=== PATIENT | female | born 1990 | race Caucasian/White ===

== ENCOUNTER 2017-03-10 13:58 | Emergency (ER) | payer OTHER ==
[~2017-03-10 13:58] MED LIST: BUPR150XL PO; IBUP-232 PO
[2017-03-10 14:02] VITALS: BP 139/93; PULSE 103; RESP 20; TEMP 98.6; O2SAT 98
--- NOTE | 2017-03-10 14:27 | PD ---
HPI Chief Complaint: GI Complaint Time Seen by Provider: 14:24 Travel History International Travel<30 days: No Contact w/Intl Traveler<30days: No Traveled to known affect area: No History of Present Illness HPI 26-year-old female with history of no significant past medical issues, presents to the ER today for 5 out of 10 epigastric abdominal pains with nausea and an episode of dark-looking diarrhea. She denies any fevers or any other symptoms. She does not know of any exacerbating or alleviating factors. She states that she started feeling eating today. Modifying Factors: None Associated Signs & Symptoms: Nausea, diarrhea, abdominal pain Risk Factors: None PFSH Past Medical History Asthma: Yes Diminished Hearing: No Migraines: Yes Past Surgical History Oral Surgery: Yes (ORAL SURGERY) Other Surgery: Yes (TUBES IN EARS) Social History Alcohol Use: Yes (OCCASSIONALLY ) Tobacco Use: No (1/2 PACK A DAY FOR 2 YEARS, PT STATES SHE QUIT YESTERDAY) Substance Use: No Allergies-Medications (Allergen,Severity, Reaction): Coded Allergies: Ceclor (Verified Allergy, Mild, UNKNOWN, 09/01/16) Uncoded Allergies: TRIPTAN (Allergy, Severe, ., 09/01/16) Reported Meds & Prescriptions Reported Meds & Active Scripts Active Ibuprofen 600 Mg Tab 600 Mg PO Q6H PRN 5 Days Reported Wellbutrin Xl 24 HR (Bupropion HCl) 150 Mg Tab 150 Mg PO DAILY Review of Systems Except as stated in HPI: all other systems reviewed are Neg Physical Exam Narrative GENERAL: Well-developed young white female patient currently mild distress. Awake and oriented 3. SKIN: Focused skin assessment warm/dry. HEAD: Atraumatic. Normocephalic. EYES: Pupils equal and round. No scleral icterus. No injection or drainage. ENT: No nasal bleeding or discharge. Mucous membranes pink and moist. NECK: Trachea midline. No JVD. CARDIOVASCULAR: Regular rate and rhythm. No murmur appreciated. RESPIRATORY: No accessory muscle use. Clear to auscultation. Breath sounds equal bilaterally. GASTROINTESTINAL: Abdomen soft, mild upper abdominal tenderness without guarding or rebound, nondistended. Hepatic and splenic margins not palpable. RECTAL EXAM: No masses or tenderness, stool is dark brown. Hemoccult negative. MUSCULOSKELETAL: No obvious deformities. No clubbing. No cyanosis. No edema. NEUROLOGICAL: Awake and alert. No obvious cranial nerve deficits. Motor grossly within normal limits. Normal speech. PSYCHIATRIC: Appropriate mood and affect; insight and judgment normal. Data Data Last Documented VS Vital Signs Date Time Temp Pulse Resp B/P Pulse Ox O2 Delivery O2 Flow Rate FiO2 03/10/17 14:42 18 98 Room Air 03/10/17 14:02 98.6 103 139/93 Orders Complete Blood Count With Diff (03/10/17 14:24) Comprehensive Metabolic Panel (03/10/17 14:24) Lipase (03/10/17 14:24) Urinalysis - C+S If Indicated (03/10/17 14:24) Iv Access Insert/Monitor (03/10/17 14:24) Ecg Monitoring (03/10/17 14:24) Oximetry (03/10/17 14:24) Sodium Chloride 0.9% Flush (Ns Flush) (03/10/17 14:30) Ed Urine Pregnancytest Poc (03/10/17 14:24) Sodium Chlor 0.9% 1000 Ml Inj (Ns 1000 M (03/10/17 14:30) Ondansetron Inj (Zofran Inj) (03/10/17 14:30) Labs Laboratory Tests Test 03/10/17 03/10/17 14:34 14:40 White Blood Count 10.8 TH/MM3 Red Blood Count 4.58 MIL/MM3 Hemoglobin 13.8 GM/DL Hematocrit 41.1 % Mean Corpuscular Volume 89.8 FL Mean Corpuscular Hemoglobin 30.2 PG Mean Corpuscular Hemoglobin 33.6 % Concent Red Cell Distribution Width 12.3 % Platelet Count 326 TH/MM3 Mean Platelet Volume 8.6 FL Neutrophils (%) (Auto) 78.9 % Lymphocytes (%) (Auto) 10.1 % Monocytes (%) (Auto) 6.5 % Eosinophils (%) (Auto) 0.8 % Basophils (%) (Auto) 3.7 % Neutrophils # (Auto) 8.5 TH/MM3 Lymphocytes # (Auto) 1.1 TH/MM3 Monocytes # (Auto) 0.7 TH/MM3 Eosinophils # (Auto) 0.1 TH/MM3 Basophils # (Auto) 0.4 TH/MM3 CBC Comment DIFF FINAL Differential Comment Sodium Level 139 MEQ/L Potassium Level 3.8 MEQ/L Chloride Level 103 MEQ/L Carbon Dioxide Level 27.4 MEQ/L Anion Gap 9 MEQ/L Blood Urea Nitrogen 11 MG/DL Creatinine 0.86 MG/DL Estimat Glomerular Filtration 79 ML/MIN Rate Random Glucose 96 MG/DL Calcium Level 9.5 MG/DL Total Bilirubin 0.5 MG/DL Aspartate Amino Transf 16 U/L (AST/SGOT) Alanine Aminotransferase 35 U/L (ALT/SGPT) Alkaline Phosphatase 109 U/L Total Protein 7.7 GM/DL Albumin 3.9 GM/DL Lipase 131 U/L Urine Collection Type CLEAN CATCH Urine Color STRAW Urine Turbidity CLEAR Urine pH 5.5 Urine Specific [place] 1.005 Urine Protein NEG mg/dL Urine Glucose (UA) NEG mg/dL Urine Ketones NEG mg/dL Urine Occult Blood NEG Urine Nitrite NEG Urine Bilirubin NEG Urine Leukocyte Esterase TRACE Urine WBC 0-2 /hpf Urine Squamous Epithelial 0-5 /hpf Cells Microscopic Urinalysis Comment CULT NOT INDICATED Urine Collection Time 14:[address] [facility] Medical Decision Making Medical Screen Exam Complete: Yes Emergency Medical Condition: Yes Medical Record Reviewed: Yes Interpretation(s) Laboratory Tests Test 03/10/17 03/10/17 14:34 14:40 Neutrophils (%) (Auto) 78.9 % (16.0-70.0) Basophils (%) (Auto) 3.7 % (0.0-2.0) Neutrophils # (Auto) 8.5 TH/MM3 (1.8-7.7) Basophils # (Auto) 0.4 TH/MM3 (0-0.2) Estimat Glomerular Filtration 79 ML/MIN (>89) Rate Urine Leukocyte Esterase TRACE (NEG) Differential Diagnosis Nausea, upper abdominal pains, dark stools and diarrheaGI bleed versus gastroenteritis versus metabolic issues versus dehydration Narrative Course Hemoccult is negative. Abdomen is fairly benign and I do not suspect an acute intra-abdominal process. Lab work did not indicate any decrease in H&H. Metabolic panel is unremarkable. I have discussed risk and benefits of doing a CAT scan at this point with the patient. Considering fairly benign abdomen and no signs of other issues identified on lab work, patient states she is comfortable without doing further CAT scan studies. At this point, she appears to have some underlying gastroenteritis. And my plan would be to release her with symptomatically relief for nausea vomiting and pain. Follow-up with primary care physician. Return for any worsening symptoms as needed. The plan has been discussed with her and she states understanding. HemaPrompt Point of Care Internal Pos. & Neg. Controls: Passed Fecal Specimen Occult Blood: Negative Diagnosis Primary Impression: Gastroenteritis Additional Impression: Abdominal pain Med/Other Pt SpecificInfo: Prescription(s) given Scripts Loperamide (Imodium A-D)2 Mg Cap2 Mg PO DIRECTED PRN (DIARRHEA) #15 CAP Ref 0 One capsule after each loose stool. Not to exceed 8 tablets per day. Prov:Renae Barrett MD 03/10/17 Ondansetron Odt (Zofran Odt)4 Mg Tab4 Mg SL Q6HR PRN (Nausea/Vomiting) #7 TAB Ref 0 Prov:Renae Barrett MD 03/10/17 Disposition: 01 DISCHARGE HOME Condition: Stable Renae Barrett MD March 10, 2017 14:27
[2017-03-10] MEDS ORDERED: SODIUM CHLOR 0.9% 1000 ML INJ 1,000 ML IV ONE (14:30)
[2017-03-10] MEDS ORDERED: ONDANSETRON HCL 4 MG/2 ML VIAL IV PUSH ONE (14:30)
[2017-03-10] MEDS ORDERED: SODIUM CHLORIDE 0.9% FLUSH 10 ML FLUSH IV FLUSH PRN (14:30)
[2017-03-10 14:42] VITALS: RESP 18; O2SAT 98
[2017-03-10 14:48] LABS: AUTOMATED NEUTROPHIL # 8.5 TH/MM3 (1.8-7.7); BASOPHIL # 0.4 TH/MM3 (0-0.2); BASOPHIL % 3.7 % (0.0-2.0); EOSINOPHIL # 0.1 TH/MM3 (0-0.4); EOSINOPHIL % 0.8 % (0.0-4.0); HEMATOCRIT 41.1 % (35.0-46.0); LYMPH % 10.1 % (9.0-44.0); LYMPHOCYTE # 1.1 TH/MM3 (1.0-4.8); MEAN CELL VOLUME 89.8 FL (80.0-100.0); MEAN CORPUSCULAR HEMOGLOBIN 30.2 PG (27.0-34.0); MEAN CORPUSCULAR HGB CONC 33.6 % (32.0-36.0); MONO % 6.5 % (0.0-8.0); NEUT % 78.9 % (16.0-70.0); PLATELET COUNT 326 TH/MM3 (150-450); RED BLOOD COUNT 4.58 MIL/MM3 (4.00-5.30); RED CELL DISTRIBUTION WIDTH 12.3 % (11.6-17.2); WHITE BLOOD COUNT 10.8 TH/MM3 (4.0-11.0)
[2017-03-10 14:57] LABS: BLOOD, URINE NEG (NEG); GLUCOSE,URINE NEG (NEG); KETONE, URINE NEG (NEG); NITRITE,URINE NEG (NEG); PH, URINE 5.5 (5.0-8.5)
[2017-03-10 14:58] LABS: METHOD OF COLLECTION CLEAN CATCH; URINE COLOR STRAW (YELLW/STRAW)
[2017-03-10 15:01] LABS: CHLORIDE 103 MEQ/L (98-107); POTASSIUM 3.8 MEQ/L (3.5-5.1); SODIUM (NA) 139 MEQ/L (136-145)
[2017-03-10 15:01] LABS: COMMENT (UR) CULT NOT INDICATED; CULTURE IF INDICATED CULT NOT INDICATED; SQUAMOUS EPITHELIAL CELL URINE 0-5 /hpf (0-5); WBC, URINE 0-2 /hpf (0-5)
[2017-03-10 15:05] LABS: ANION GAP 9 MEQ/L (5-15); BICARBONATE 27.4 MEQ/L (21.0-32.0); BLOOD UREA NITROGEN 11 MG/DL (7-18)
[2017-03-10 15:08] LABS: ALT (GPT) 35 U/L (10-53); AST (GOT) 16 U/L (15-37); GLOMERULAR FILTRATION RATE 79 ML/MIN (>89); HEMO FLAGS DIFF FINAL
[2017-03-10 15:10] LABS: TOTAL BILIRUBIN ADULT 0.5 MG/DL (0.2-1.0)
[2017-03-10 15:11] LABS: ALKALINE PHOSPHATASE 109 U/L (45-117)
[2017-03-10] MEDS ORDERED: LOPE7.5C PO (15:18)
[2017-03-10] MEDS ORDERED: ZOFR4TAB3 SL (15:18)
[2017-03-11] MEDS ORDERED: BENT20TA PO (21:28)
== END 2017-03-10 15:28 | disposition home or self-care (01) ==
LOC: PHED 13:58
DX: K52.9 Noninfective gastroenteritis and colitis, unspecified (principal); J45.909 Unspecified asthma, uncomplicated; F17.200 Nicotine dependence, unspecified, uncomplicated
CPT/HCPCS: 80053; 81001; 83690; 84703; 85025; 96361; 96374; 99284; J2405; J7030

== ENCOUNTER 2017-03-11 20:21 | Emergency (ER) | payer OTHER ==
[~2017-03-11] VITALS: Ht 160 cm; Wt 86.0 kg
[~2017-03-11 20:21] MED LIST changes: +LOPE7.5C PO; +ZOFR4TAB3 SL
[2017-03-11 20:23] VITALS: BP 134/79; PULSE 90; RESP 15; TEMP 98.8; O2SAT 99
--- NOTE | 2017-03-11 21:25 | PD ---
HPI . Upper abdominal pain Chief Complaint: GI Complaint Time Seen by Provider: 21:16 Travel History International Travel<30 days: No Contact w/Intl Traveler<30days: No Traveled to known affect area: No History of Present Illness HPI Patient presents with a 24+ hour history of abdominal pain. She describes bloating. She rates it as 5/10. She states that it is getting progressively worse. He reports some associated nausea and 2 black stools. She denies fever. She denies any urinary tract symptoms. She has had no vomiting. Patient was seen at [facility] yesterday for same. She with a CBC, comprehensive metabolic panel, UA for Hemoccult. All were negative. She was safely discharged home. [facility] Past Medical History Asthma: Yes Depression: Yes Diminished Hearing: No Respiratory: Yes (ASTHMA) Immunizations Current: Yes Migraines: Yes Tetanus Vaccination: Unknown Influenza Vaccination: No ?: Not LMP: 03/04/17 Past Surgical History Oral Surgery: Yes (ORAL SURGERY) Tympanostomy Tube: Yes Other Surgery: Yes (TUBES IN EARS) Social History Alcohol Use: Yes (OCCASSIONALLY ) Tobacco Use: No (1/2 PACK A DAY FOR 2 YEARS, PT STATES SHE QUIT YESTERDAY) Substance Use: No Allergies-Medications (Allergen,Severity, Reaction): Coded Allergies: Ceclor (Verified Allergy, Mild, UNKNOWN, 03/11/17) Uncoded Allergies: TRIPTAN (Allergy, Severe, ., 09/01/16) Reported Meds & Prescriptions Reported Meds & Active Scripts Active Imodium A-D (Loperamide HCl) 2 Mg Cap 2 Mg PO DIRECTED PRN One capsule after each loose stool. Not to exceed 8 tablets per day. Zofran Odt (Ondansetron Odt) 4 Mg Tab 4 Mg SL Q6HR PRN Ibuprofen 600 Mg Tab 600 Mg PO Q6H PRN 5 Days Reported Wellbutrin Xl 24 HR (Bupropion HCl) 150 Mg Tab 150 Mg PO DAILY Review of Systems Except as stated in HPI: all other systems reviewed are Neg General / Constitutional: No: Fever, Chills Gastrointestinal: Positive: Nausea, Abdominal Pain, No: Vomiting, Diarrhea, Constipation Genitourinary: No: Urgency, Frequency, Dysuria Physical Exam Narrative GENERAL: Healthy-appearing young woman who is in no acute distress. SKIN: Warm and dry. HEAD: Atraumatic. Normocephalic. EYES: Pupils equal and round. Extraocular movements are intact. ENT: No nasal bleeding or discharge. Mucous membranes pink and moist. NECK: Trachea midline. Neck is supple. CARDIOVASCULAR: Regular rate and rhythm. Heart sounds are normal. RESPIRATORY: No accessory muscle use. Lungs are clear with full air movement throughout. GASTROINTESTINAL: Abdomen soft, non-tender, nondistended. MUSCULOSKELETAL: No obvious deformities. No edema. NEUROLOGICAL: Awake and alert. No obvious cranial nerve deficits. Motor grossly within normal limits. Normal speech. PSYCHIATRIC: Appropriate mood and affect; insight and judgment normal. Data Data Last Documented VS Vital Signs Date Time Temp Pulse Resp B/P Pulse Ox O2 Delivery O2 Flow Rate FiO2 03/11/17 20:23 98.8 90 15 134/79 99 Room Air MDM Medical Decision Making Medical Screen Exam Complete: Yes Emergency Medical Condition: Yes Medical Record Reviewed: Yes (records were reviewed. Patient had a negative workup yesterday for same.) Differential Diagnosis Differential diagnosis of abdominal pain includes but is not limited to gastritis, pancreatitis, hepatitis, gastroenteritis, gallbladder disease, constipation, urinary retention, UTI, peptic ulcer disease, diverticulitis or appendicitis Narrative Course Patient presents with abdominal pain. She had a negative workup yesterday for same. She has a benign exam. HemaPrompt Point of Care Internal Pos. & Neg. Controls: Passed Fecal Specimen Occult Blood: Negative Diagnosis Primary Impression: Abdominal pain Qualified Code: R10.84 - Generalized abdominal pain Patient Instructions: Abdominal Pain (ED), General Instructions Med/Other Pt SpecificInfo: Prescription(s) given Scripts Dicyclomine (Bentyl)20 Mg Tab20 Mg PO QID #10 TAB Ref 0 Prov:Teagan Ralph MD 03/11/17 Disposition: 01 DISCHARGE HOME Condition: Stable Teagan Ralph MD March 11, 2017 21:25
[2017-03-11] MEDS ORDERED: BENT20TA PO (21:28)
== END 2017-03-11 21:41 | disposition home or self-care (01) ==
LOC: NEPD 20:21
DX: R10.84 Generalized abdominal pain (principal); R14.0 Abdominal distension (gaseous); R11.0 Nausea; R19.5 Other fecal abnormalities; Z87.09 Personal history of other diseases of the respiratory system; Z86.59 Personal history of other mental and behavioral disorders; Z86.69 Personal history of other diseases of the nervous system and sense organs; Z87.891 Personal history of nicotine dependence
CPT/HCPCS: 99283

== ENCOUNTER 2017-10-01 21:04 | Emergency (ER) | payer SELFPAY ==
[~2017-10-01] VITALS: Ht 160 cm; Wt 92.4 kg
[~2017-10-01 21:04] MED LIST changes: +BENT20TA PO
[2017-10-01 21:14] VITALS: BP 129/76; PULSE 88; RESP 18; TEMP 99; O2SAT 97
[2017-10-01] MEDS ORDERED: MORPHINE SULFATE 4 MG/ML INJ IM ONE (21:45)
--- NOTE | 2017-10-01 22:08 | RADRPT ---
EXAM DATE/TIME: 10/01/2017 21:47 [facility] COMPARISON: No previous studies available for comparison. INDICATIONS : Patient tripped on a root and landed on patella. MEDICAL HISTORY : Asthma SURGICAL HISTORY : Tubal ligation. ENCOUNTER: Initial ACUITY: 1 day PAIN SCORE: 8/10 LOCATION: Right Patella FINDINGS: Four view examination of the right knee demonstrates no evidence of fracture or dislocation. Bony mi neralization is normal. The articular surfaces are intact. The suprapatellar soft tissues have a no rmal configuration. CONCLUSION: No acute disease. Santos Luis MD on October 01, 2017 at 22:06 Board Certified Radiologist. This report was verified electronically.
[2017-10-01] MEDS ORDERED: TRAM50 PO (22:19)
[2017-10-01] MEDS ORDERED: IBUP1TAB7 PO (22:19)
--- NOTE | 2017-10-01 22:19 | PD ---
HPI . Knee injury Chief Complaint: Injury Time Seen by Provider: 21:43 Travel History International Travel<30 days: No Contact w/Intl Traveler<30days: No Traveled to known affect area: No History of Present Illness HPI Patient presents with chief complaint of a knee injury. She states that she had a trip and fall landing on a flexed right knee just prior to presentation. She states that the knee feels swollen. She rates her pain 9/10. She has treated it prior to presentation with ice. PFSH Past Medical History Asthma: Yes Depression: Yes Diminished Hearing: No Respiratory: Yes (ASTHMA) Immunizations Current: Yes Migraines: Yes Tetanus Vaccination: > 5 Years Influenza Vaccination: No ?: Not LMP: 3 WEEKS AGO Past Surgical History Oral Surgery: Yes (ORAL SURGERY) Tympanostomy Tube: Yes Other Surgery: Yes (TUBES IN EARS) Social History Alcohol Use: Yes (OCCASSIONALLY ) Tobacco Use: No (1/2 PACK A DAY FOR 2 YEARS, PT STATES SHE QUIT YESTERDAY) Substance Use: No Allergies-Medications (Allergen,Severity, Reaction): Coded Allergies: cefaclor (Unverified Allergy, Mild, UNKNOWN, 10/01/17) Uncoded Allergies: TRIPTAN (Allergy, Severe, ., 09/01/16) Reported Meds & Prescriptions Reported Meds & Active Scripts Active Review of Systems Except as stated in HPI: all other systems reviewed are Neg Musculoskeletal: Positive: Arthralgias, Edema Physical Exam Narrative GENERAL: Awake and alert and in no acute distress. SKIN: Warm and dry. She has a superficial abrasion on the right knee. HEAD: Normocephalic/atraumatic. EYES: Pupils are equal. Extraocular movements are intact. NECK: Normal range of motion. CARDIOVASCULAR: Regular rate and rhythm. RESPIRATORY: Nonlabored respirations. MUSCULOSKELETAL: Atraumatic. Tender right knee. She is able to extend the knee. No gross deformity. Distally neurovascularly intact. NEUROLOGICAL: Nonfocal. PSYCHIATRIC: Appropriate mood and affect. Data Data Last Documented VS Vital Signs Date Time Temp Pulse Resp B/P (MAP) Pulse Ox O2 Delivery O2 Flow Rate FiO2 10/01/17 21:44 Room Air 10/01/17 21:14 99.0 88 18 129/76 (93) 97 Orders Orders Knee, Complete (4vws) (10/01/17 21:14) Ed Urine Pregnancytest Poc (10/01/17 21:43) Morphine Inj (Morphine Inj) (10/01/17 21:45) MDM Medical Decision Making Medical Screen Exam Complete: Yes Emergency Medical Condition: Yes Differential Diagnosis Differential diagnosis of extremity trauma includes but is not limited to fracture, sprain or strain, dislocation, contusion Narrative Course Patient presents with a chief complaint of right knee injury. Morphine and an x -ray are pending. X-ray: No acute disease. Her knee will be wrapped. She'll be discharged home with crutches. Diagnosis Primary Impression: Contusion of right knee Qualified Codes: S80.01XA - Contusion of right knee, initial encounter Patient Instructions: Contusion in Adults (DC), General Instructions Med/Other Pt SpecificInfo: Prescription(s) given Scripts Tramadol (Ultram) 50 Mg Tab 50 MG PO Q4H Y for PAIN, #12 TAB 0 Refills Prov: Teagan Ralph MD 10/01/17 Ibuprofen (Ibuprofen) 800 Mg Tab 800 MG PO Q8H Y for Pain/Inflammation, #60 TAB 0 Refills Prov: Teagan Ralph MD 10/01/17 Disposition: DISCHARGE HOME Condition: Stable Teagan Ralph MD Oct 01, 2017 22:19
[2017-10-01 22:47] VITALS: BP 122/76; RESP 16
== END 2017-10-01 22:56 | disposition home or self-care (01) ==
LOC: PHED 21:04
DX: S80.01XA Contusion of right knee, initial encounter (principal); W01.0XXA Fall on same level from slipping, tripping and stumbling without subsequent striking against object, initial encounter
CPT/HCPCS: 73564; 84703; 99283; E0113; J2270